=== PATIENT | female | born 1990 | race Asian ===

== ENCOUNTER 2019-03-03 20:04 | Emergency (ER) | payer OTHER ==
[2019-03-03 20:23] VITALS: BP 111/79
[2019-03-03] MEDS ORDERED: Amoxicillin/Clavulanate TAB* 875 MG PO ONE (20:32)
--- NOTE | 2019-03-03 20:32 | UC ---
Bite Injury/Animal HPI - HPI Summary HPI Summary: small scratch from a stray cat near right thumb earlier today some surrounding erythema - History of Current Complaint Chief Complaint: UCSkin Stated Complaint: CAT SCRATCH Time Seen by Provider: 03/03/19 20:26 Hx Obtained From: Patient Hx Last Menstrual Period: [id number] ?: No Pain Intensity: 0 Pain Scale Used: 0-10 Numeric Type of Bite: Animal - stray cat Has Animal Been Immunized?: Unknown Character: Abrasion/Laceration Aggravating Factor(s): Nothing Alleviating Factor(s): Nothing Associated Signs And Symptoms: Positive: Erythema - minimal Hx of Bite: Provoked by: - picking up Animal Available for Observation: Yes Animal Control Notified: No - Allergies/Home Medications Allergies/Adverse Reactions: Allergies Allergy/AdvReac Type Severity Reaction Status Date / Time No Known Allergies Allergy Verified 03/03/19 20:23 Home Medications: Home Medications Levothyroxine TAB* [Synthroid 25 MCG TAB*] 25 mcg PO 0800 03/03/19 [History Confirmed 03/03/19] PMH/Surg Hx/FS Hx/Imm Hx Previously Healthy: No Endocrine History: Hypothyroidism - Surgical History Surgical History: None - Family History Known Family History: Positive: None - Social History Occupation: Student Lives: Dormitory/Roommates Alcohol Use: Weekly Substance Use Type: None Smoking Status (MU): Never Smoked Tobacco - Immunization History Most Recent Tetanus Shot: never Review of Systems All Other Systems Reviewed And Are Negative: Yes Constitutional: Positive: Negative Skin: Positive: Other - .5 cm cat scratch near right thumb Eyes: Positive: Negative ENT: Positive: Negative Respiratory: Positive: Negative Cardiovascular: Positive: Negative Gastrointestinal: Positive: Negative Genitourinary: Positive: Negative Motor: Positive: Negative Neurovascular: Positive: Negative Musculoskeletal: Positive: Negative Neurological: Positive: Negative Psychological: Positive: Negative Is Patient Immunocompromised?: No Physical Exam Triage Information Reviewed: Yes Appearance: Well-Appearing, No Pain Distress, Well-Nourished Vital Signs: Initial Vital Signs Temp 98.7 F 03/03/19 20:20 Pulse 80 03/03/19 20:20 Resp 16 03/03/19 20:20 BP 111/79 03/03/19 20:20 Pulse Ox 98 03/03/19 20:20 Vital Signs Reviewed: Yes Eye Exam: Normal Eyes: Positive: Conjunctiva Clear ENT Exam: Normal ENT: Positive: Normal ENT inspection, Hearing grossly normal. Negative: Trismus , Muffled voice, Hoarse voice Dental Exam: Normal Neck exam: Normal Neck: Positive: Supple, Nontender Respiratory Exam: Normal Respiratory: Positive: Chest non-tender, No respiratory distress, No accessory muscle use Cardiovascular Exam: Normal Cardiovascular: Positive: RRR, Pulses Normal, Brisk Capillary Refill Musculoskeletal Exam: Normal Musculoskeletal: Positive: Strength Intact, ROM Intact, No Edema Neurological Exam: Normal Neurological: Positive: Alert, Muscle Tone Normal Psychological Exam: Normal Skin: Positive: Other - 1/2 cm scratch near right thumb---slight erythema, no bleeding Bite Injury Course/Dx - Course Course Of Treatment: soap and water wash Augmentin tetanus upto date and will confirm with Nae in am--follow at [facility] prn - Differential Dx/Diagnosis Provider Diagnosis: Cat scratch of right hand Discharge - Sign-Out/Discharge Documenting (check all that apply): Patient Departure All imaging exams completed and their final reports reviewed: No Studies - Discharge Plan Condition: Stable Disposition: HOME Prescriptions: Amoxicillin/Clavulanate TAB* [Augmentin TAB 875*] 875 mg PO BID #20 tab Patient Education Materials: Acute Wounds (ED) Referrals: [facility] [Outside] - 1 Day Additional Instructions: Follow up at [facility] tomorrow to assure you are up to date on your tetanus vaccine-- - Billing Disposition and Condition Condition: STABLE Disposition: Home
== END 2019-03-03 21:40 | disposition home or self-care (01) ==
LOC: UCEAST 20:04
DX: S60.311A Abrasion of right thumb, initial encounter (principal); W55.03XA Scratched by cat, initial encounter; Y92.9 Unspecified place or not applicable
CPT/HCPCS: 99202; A9270-GY; G0463